=== PATIENT | female | born 1960 | race Caucasian/White ===

== ENCOUNTER 2017-10-20 13:24 | Emergency (ER) | payer SELFPAY ==
[2017-10-20 15:28] LABS: APPEARANCE CLEAR (CLEAR); BILIRUBIN NEGATIVE (NEGATIVE); COLOR YELLOW (YELLOW); GLUCOSE NEGATIVE (NEGATIVE); KETONE NEGATIVE (NEGATIVE); NITRITE NEGATIVE (NEGATIVE); PROTEIN NEGATIVE (NEGATIVE); SPECIFIC GRAVITY 1.015 (1.005-1.020); UROBILINOGEN NORMAL (NORMAL)
== END 2017-10-20 18:20 | disposition home or self-care (01) ==
LOC: D.ER 13:24
PROVIDERS: Family Medicine
DX: M79.602 Pain in left arm (principal); S46.912A Strain of unspecified muscle, fascia and tendon at shoulder and upper arm level, left arm, initial encounter; X58.XXXA Exposure to other specified factors, initial encounter; Y93.89 Activity, other specified; Y92.019 Unspecified place in single-family (private) house as the place of occurrence of the external cause

== ENCOUNTER 2018-11-20 15:54 | Emergency (ER) | payer MEDICAID ==
[~2018-11-20] VITALS: Ht 160 cm; Wt 75.0 kg
[2018-11-20 15:57] VITALS: Ht 160 cm; Wt 75.0 kg
[2018-11-20 16:54] LABS: BASOPHILS 0.3 % (0-2); EOSINOPHILS 1.3 % (0-7); HEMATOCRIT 38.4 % (36.0-48.0); HEMOGLOBIN 13.2 g/dL (12-16); IMMATURE GRANULOCYTES 0.3 % (0-5); LYMPHOCYTES 17.8 % (15-50); MCH 31.1 pg (26.0-34.0); MCHC 34.4 g/dL (31.0-37.0); MCV 90.6 fL (80.0-100.0); MEAN PLATELET VOLUME 10.7 fL (7.4-10.4); MONOCYTES 11.4 % (2-11); NEUTROPHILS 68.9 % (40-80); PLATELET COUNT 173 10x3/uL (130-400); RBC 4.24 10x6/uL (4.00-5.40); RDW 12.9 % (11.5-14.5); WBC 3.9 10x3/uL (4.8-10.8)
[2018-11-20 17:04] LABS: APTT 29.3 SECONDS (22.8-39.4); INR 0.95 (0.85-1.17); PROTIME 12.2 SECONDS (11.6-15.0)
[2018-11-20 17:07] LABS: ALBUMIN 3.4 g/dL (3.4-5.0); ALKALINE PHOSPHATASE 101 U/L (46-116); ALT (SGPT) 38 U/L (10-68); BILIRUBIN - TOTAL 0.37 mg/dL (0.2-1.3); CALC OSMOLALITY 267 mosm/kg (275-300); CALCIUM 7.9 mg/dL (8.5-10.1); CARBON DIOXIDE 29.9 mmol/L (21.0-32.0); CHLORIDE - SERUM 99 mmol/L (98-107); CREATININE - SERUM 0.7 mg/dL (0.6-1.3); GLUCOSE 89 mg/dL (74-106); POTASSIUM - SERUM 3.5 mmol/L (3.5-5.1); PROTEIN - SERUM 7.3 g/dL (6.4-8.2); SODIUM 135 mmol/L (136-145); UREA NITROGEN 9 mg/dL (7-18); eGFR NON AFRICAN AMERICAN > 90 mL/min (90-120)
[2018-11-20 17:19] LABS: CKMB 0.5 U/L (0.0-3.6); CREATINE KINASE 58 UL (21-215); PRO BNP 10 pg/mL (0-125)
[2018-11-20 17:21] LABS: TROPONIN-I < 0.017 ng/mL (0.000-0.060)
[2018-11-20 19:11] LABS: APPEARANCE CLEAR (CLEAR); BILIRUBIN NEGATIVE (NEGATIVE); COLOR YELLOW (YELLOW); GLUCOSE NEGATIVE (NEGATIVE); KETONE NEGATIVE (NEGATIVE); NITRITE NEGATIVE (NEGATIVE); PROTEIN NEGATIVE (NEGATIVE); SPECIFIC GRAVITY 1.015 (1.005-1.020); UROBILINOGEN NORMAL (NORMAL)
[2018-11-20] MEDS ORDERED: ZPAK PO (19:57)
[2018-11-20] MEDS ORDERED: CYCLOBENZAPRINE10 MG PO (19:57)
[2018-11-20] MEDS ORDERED: FLUTICASONE PRO16 GM NASAL (19:57)
[2018-11-20] MEDS ORDERED: CALCIUM 250+D T1 TAB PO (19:59)
[2018-11-20 20:30] VITALS: BP 120/78
== END 2018-11-21 00:26 | disposition home or self-care (01) ==
LOC: D.ER 15:54
PROVIDERS: Emergency Medicine
DX: J01.90 Acute sinusitis, unspecified (principal); R53.1 Weakness; M79.606 Pain in leg, unspecified; R50.9 Fever, unspecified; R05 Cough

== ENCOUNTER 2018-12-28 07:48 | Emergency (ER) | payer SELFPAY ==
[~2018-12-28] VITALS: Ht 160 cm; Wt 72.7 kg
[~2018-12-28 07:48] MED LIST: CALCIUM 250+D T1 TAB PO; CYCLOBENZAPRINE10 MG PO; FLUTICASONE PRO16 GM NASAL; ZPAK PO
[2018-12-28 07:51] VITALS: Ht 160 cm; Wt 72.7 kg
[2018-12-28 08:58] LABS: C-REACTIVE PROTEIN 0.5 mg/dL (0.0-0.9); URIC ACID 3.8 mg/dL (2.6-7.2)
[2018-12-28 09:03] VITALS: BP 128/81
[2018-12-28] MEDS ORDERED: NAPROSYN500 MG PO (09:07)
[2018-12-29 21:06] LABS: CYCLIC CITRULL PEPTIDE IGG/IGA 3 units (0-19)
== END 2018-12-28 09:23 | disposition home or self-care (01) ==
LOC: D.ER 07:48
PROVIDERS: Family Medicine
DX: M13.842 Other specified arthritis, left hand (principal)